=== PATIENT | male | born 1975 | race African-American/Black ===

== ENCOUNTER 2024-12-06 12:21 | Emergency (ER) | payer BC, SELFPAY ==
[2024-12-06 12:24] VITALS: BP 138/94
--- NOTE | 2024-12-06 12:51 | ED.GENMED ---
History of Present Illness
General
Chief Complaint: Musculo-Skeletal Complaint
Time Seen by Provider: 12/06/24 12:50
History of Present Illness
History of Present Illness:
TIME OF INITIAL EVALUATION
- 12:55 PM
REVIEW OF OLD RECORDS
- The patient has history of high blood pressure and anxiety. I reviewed records, the patient was seen here with abdominal pain in 2021 and at that time had an unremarkable gallbladder ultrasound.
CHIEF COMPLAINT(S)
Neck pain for approximately one month, exacerbated by movement.
HISTORY OF PRESENT ILLNESS
The patient is a 49-year-old male who presents with pain that has persisted for about a month. The pain is localized primarily to the neck and exacerbates when the patient moves his head, particularly to the right, which also causes decreased range
of motion. The pain travels to the right shoulder but does not radiate into the arm. The patient denies any recent trauma or head injury. There is also difficulty with neck mobility when looking up and down. The patients pain is relieved by
immobility, and he reports that applying an analgesic balm has provided some temporary relief. He has a past history of a rotator cuff issue, but this current situation feels different to him.
Previously, the patient tried using muscle relaxers without effect. He has not experienced significant weight loss. Sleep is disturbed due to the pain. The patient expressed interest in addressing the pain cycle with steroid treatment but declined
narcotic pain medications.
PHYSICAL EXAM
- Musculoskeletal:
- Decreased range of motion in the neck, particularly in right lateral rotation.
- Pain upon movement but not upon palpation of the neck.
- Pain extends to the right shoulder.
- Rotator cuff test was largely unremarkable indicating potential cervical involvement, only borderline positive empty can test.
- Neurological exam of the arms is normal, with no radiating pain into the arms however the patient earlier today indicated that he had numbness at the right middle finger.
-General: Well appearing in no significant distress
-HEENT: Moist oral mucosa
-Neurologic: Excellent strength all extremities, no obvious coordination deficits
-Psychiatric: Appropriate mental status, normal insight and judgement
-Extremities: Nontender, no edema, moves all extremities equally
-Skin: No rash, no lesions
.
PROBLEM LIST
- Acute neck pain with suspected cervical radiculopathy.
PLAN
1. Administered a dose of steroids to reduce inflammation, with a prescription for a four-day course.
2. Referred the patient to follow up with an medical reimbursement specialist and neurosurgeon for further evaluation and management.
3. Recommended use of a sling to support the shoulder and alleviate pressure.
4. Discussed the limited utility of X-ray imaging in the absence of trauma, so no immediate imaging was planned.
5. The patient advised to consider physical therapy after discussion with a primary care physician or specialist as part of ongoing management.
DIFFERENTIAL DIAGNOSIS
The Differential Diagnosis includes, in no particular order and is not limited to:
1. Cervical radiculopathy
2. Cervical strain or sprain
3. Cervical spondylosis
4. Rotator cuff pathology
5. Cervical facet syndrome
6. Myofascial pain syndrome
7. Thoracic outlet syndrome
8. Herniated cervical disc
9. Brachial plexopathy
10. Spinal stenosis
RADIOLOGY
- No clear indication for imaging at this time, there was no trauma, his neurologic examination is relatively unremarkable
EKG
- Not indicated
LABS
- Not indicated
UPDATE
- Will try steroids and neurosurgical follow-up. He has already tried muscle relaxant without improvement and he states he has already tried NSAIDs.
Past History
Past History
ED Past Medical History: None
ED Past Surgical History: None
Social History
Tobacco: Non-smoker
Alcohol: Occasional
Drug: None
Personal: Other (Accompanied by his mother)
Living: with family
Employment: Employed
Family History
Family History: Negative Diabetes or CAD
Phy Exam
Physical Exam
Physical Exam:
See HPI
Course
Orders/Labs/Results
Orders:
Orders
12/06/24 13:02
Ondansetron Orally Disint [Zofran Odt (Orally Disintegrating)] 4 mg PO ONCE PRN nausea and vomiting
12/06/24 13:03
Prednisone [Deltasone] 50 mg PO NOW STA
12/06/24 13:04
Sling Right-Treatment ONCE
12/07/24 08:00
Pantoprazole [Protonix] 40 mg PO DAILY
Vital Signs
Initial and Last Documented VS:
Initial Vital Signs
Temp Pulse Resp BP Pulse Ox
37.0 C 88 18 138/94 100
12/06/24 12:24 12/06/24 12:24 12/06/24 12:24 12/06/24 12:24 12/06/24 12:24
Last Documented Vital Signs
Temp Pulse Resp BP Pulse Ox
37.0 C 88 18 138/94 100
12/06/24 12:24 12/06/24 12:24 12/06/24 12:24 12/06/24 12:24 12/06/24 12:52
*Pulse Oximetry
SaO2: 100
Oxygen Mode of Delivery: Room air
Patient hypoxic: no
*Critical Care Note
Total Time (30-74mins, 75-104mins- exclusive of procedures): Not Applicable
ED Attending Note
-
Portions of this chart may have been created with voice recognition software.� Occasional wrong word or��sound alike� substitutions may have occurred due to the inherent limitations of voice recognition software.
Discharge Plan
Departure
Patient Disposition: Home (Routine Discharge)
Date of Disposition: 12/06/24
Time of Disposition: 13:03
Patient with high blood pressure during this ER visit?: Yes
Discharge Problem:
Cervical radiculopathy
Instructions: Radiculopathy of the neck and back (including sciatica), BLOOD PRESSURE
Prescriptions:
New
prednisone 50 mg tablet
50 mg PO DAILY Qty: 5 0RF
No Action
pantoprazole [Protonix] 40 mg tablet,delayed release (DR/EC)
40 mg PO DAILY Qty: 30 0RF
ondansetron 4 mg tablet,disintegrating
4 mg PO ONCE PRN (Reason: nausea and vomiting) Qty: 10 0RF
Referrals:
Fransico Watson MD [Active, Orthopedics]
Saqib Mathis DO [Active, Neurosurgery]
[facility],Filomena Read MD [Family Provider, Family Practice]
Activity Restrictions/Additional Instructions:
We have given you a sling to see if this helps for comfort. I am giving you the contact information for a local neurosurgeon (Dr. Mathis) as your symptoms very well could be related to a cervical radiculopathy. We can try steroids over the
next few days. I have also given her the contact information for general orthopedist, Dr. Watson. I sent the prescription to the [facility] pharmacy in [place].
Interventions
Interventions:
*Risk Screen - Suicide Last Done: 12/06/24 12:24
*General Assessment Last Done: 12/06/24 12:24
*ED COVID-19 Vaccine History Last Done: 12/06/24 12:24
Discharge Date and Time
Print Language: [place]
[2024-12-06] MEDS: DELTASONE 50 MG PO (13:15)
== END 2024-12-06 13:30 | disposition home or self-care (01) ==
LOC: EMR 12:21
PROVIDERS: EMERGENCY PHYSICIAN Emergency Medicine; FAMILY PHYSICIAN Family Medicine
DX: M54.12 Radiculopathy, cervical region (principal); R10.9 Unspecified abdominal pain; F41.9 Anxiety disorder, unspecified
CPT/HCPCS: 99282